=== PATIENT | female | born 1955 | race Caucasian/White ===

== ENCOUNTER 2018-03-15 03:34 | Emergency (ER) | payer OTHER ==
[2018-03-15] MEDS: IPRATROPIUM (NEB) 0.5 MG/2.5 ML AMP NEB (04:29)
[2018-03-15] MEDS: ALBUTEROL 0.083% (NEB) 2.5 MG/3 ML AMP NEB (04:30)
[2018-03-15] MEDS: METHYLPREDNISOLONE 125 MG INJ IM (04:38)
== END 2018-03-15 05:32 | disposition home or self-care (01) ==
LOC: FTE 03:34
DX: J20.9 Acute bronchitis, unspecified (principal); J45.901 Unspecified asthma with (acute) exacerbation
CPT/HCPCS: 94664; 96372; 99284-25

== ENCOUNTER 2019-08-15 17:31 | Emergency (ER) | payer OTHER ==
[2019-08-15] MEDS: morphine 4 MG/ML VIAL IV (19:09)
[2019-08-15] MEDS: ONDANSETRON 4 MG INJ IV (19:09)
[2019-08-15] MEDS: POTASSIUM CHLORIDE (SR) 20 MEQ TAB PO (20:48)
[2019-08-15] MEDS: ACETAMINOPHEN 325 MG TAB PO (21:15)
== END 2019-08-15 22:23 | disposition home or self-care (01) ==
LOC: E/R 17:31
DX: G45.9 Transient cerebral ischemic attack, unspecified (principal); J45.909 Unspecified asthma, uncomplicated; I10 Essential (primary) hypertension
CPT/HCPCS: 36415; 70450; 71045; 80048; 80061; 80307; 81001; 83036; 84484; 85025; 85610; 85730; 93005; 99285-25